=== PATIENT | female | born 1985 | race Caucasian/White ===

== ENCOUNTER → 2019-05-31 | Outpatient (CLI) | payer OTHER ==
[~2019-05-31] MED LIST: ALBU18HF INH; BIOT1TAB2 PO; CALCIUM PO; FLUT12AE INH; MAG PO; ZINC PO
== END | disposition home or self-care (01) ==
LOC: STAR 07:49
PROVIDERS: ATTEND Obstetrics & Gynecology
DX: Z01.818 Encounter for other preprocedural examination (principal)
CPT/HCPCS: 36415; 84702

== ENCOUNTER 2019-06-06 13:06 | Day surgery (SDC) | payer OTHER ==
[~2019-06-06] VITALS: Ht 162.6 cm; Wt 71.9 kg
[2019-06-06] MEDS ORDERED: LACTATED RINGERS 1,000 ML IV SCH (13:29)
[2019-06-06] MEDS ORDERED: BUPIVACAINE/PF 0.25% ONE (13:38)
[2019-06-06 13:41] LABS: HCG UR SG 1.013 (1.003-1.030)
[2019-06-06] MEDS ORDERED: ACETAMINOPHEN 500 MG TABLET PO STA (14:24)
[2019-06-06] MEDS ORDERED: SCOPOLAMINE 1MG PATCH TD STA ×2 (14:24→14:41)
[2019-06-06] MEDS ORDERED: SCOPOLAMINE 1MG PATCH TD ONE (14:26)
[2019-06-06] MEDS ORDERED: ACETAMINOPHEN 500 MG TABLET ONE (14:26)
[2019-06-06] MEDS ORDERED: MIDAZOLAM 1 MG/ML, 2ML ONE (14:31)
[2019-06-06] MEDS ORDERED: FENTANYL PF 250 MCG/5ML ONE (14:31)
[2019-06-06] MEDS ORDERED: LIDOCAINE-MPF 2% ,5ML ONE (14:33)
[2019-06-06] MEDS ORDERED: PROPOFOL 10 MG/ML, 20ML ONE (14:33)
[2019-06-06] MEDS ORDERED: ONDANSETRON 2MG/ML, 2ML ONE ×2 (14:36)
[2019-06-06] MEDS ORDERED: ROCURONIUM 10MG/ML,5ML ONE (14:36)
[2019-06-06] MEDS ORDERED: DEXAMETHASONE 4 MG/ML, 1ML ONE ×2 (14:36)
[2019-06-06] MEDS ORDERED: SUGAMMADEX 200 MG/2 ML IVPush ONE (14:44)
[2019-06-06] MEDS ORDERED: SUCCINYLCHOLINE 20 MG/ML, 10ML ONE (14:44)
[2019-06-06] MEDS ORDERED: ONDANSETRON ODT 8 MG PO PRN (15:00)
[2019-06-06] MEDS ORDERED: ALBUTEROL SULFATE 2.5 MG/3 ML NPPB PRN (15:00)
[2019-06-06] MEDS ORDERED: DIAZEPAM 5 MG/ML, 2ML IVPush PRN (15:00)
[2019-06-06] MEDS ORDERED: HYDROmorphone 2 MG/ML, 1ML IVPush PRN (15:00)
[2019-06-06] MEDS ORDERED: HALOPERIDOL 5 MG/ML IV PRN (15:00)
[2019-06-06] MEDS ORDERED: hydrALAzine 20 MG/ML, 1ML IV PRN (15:00)
[2019-06-06] MEDS ORDERED: MEPERIDINE/PF 25MG/ML,1ML IVPush PRN (15:00)
[2019-06-06] MEDS ORDERED: LABETALOL 5MG/ML, 20ML IV PRN (15:00)
[2019-06-06] MEDS ORDERED: ONDANSETRON 2MG/ML, 2ML IV PRN (15:00)
[2019-06-06] MEDS ORDERED: EPHEDRINE 50 MG/ML, 1ML IVPush PRN (15:00)
[2019-06-06] MEDS ORDERED: MIDAZOLAM 1 MG/ML, 2ML IV PRN (15:00)
[2019-06-06] MEDS ORDERED: PROMETHAZINE 12.5 MG SUPP PR PRN (15:00)
[2019-06-06] MEDS ORDERED: FENTANYL PF 100 MCG/2ML IV PRN (15:00)
[2019-06-06] MEDS ORDERED: PROMETHAZINE 25 MG/ML, 1ML IV PRN (15:00)
[2019-06-06] MEDS ORDERED: OXYcodone 5 MG/5 ML ORAL.SOL UDC PO PRN (15:00)
== END 2019-06-06 18:00 | disposition home or self-care (01) ==
LOC: OUT 13:06 → 4NE 16:53 → OUT 18:00
PROVIDERS: ATTEND Obstetrics & Gynecology
DX: Z30.2 Encounter for sterilization (principal); N83.8 Other noninflammatory disorders of ovary, fallopian tube and broad ligament; J45.909 Unspecified asthma, uncomplicated; Z98.890 Other specified postprocedural states
CPT/HCPCS: 58670; 81025; 88302; J0330; J1100; J2250; J2405; J2704; J3010; J3490; J7120; G0378